=== PATIENT | female | born 1990 | race Caucasian/White ===

== ENCOUNTER 2019-06-30 01:53 | Emergency (ER) | payer BC, OTHER ==
[~2019-06-30] VITALS: Ht 165.1 cm; Wt 86.2 kg
[2019-06-30] MEDS ORDERED: NORCO 5-325 TA1 EAC1 PO (04:02)
[2019-06-30 04:09] VITALS: BP 136/86
== END 2019-06-30 04:10 | disposition home or self-care (01) ==
LOC: ER 01:53
DX: T14.90XA Injury, unspecified, initial encounter (principal); R51 Headache; W19.XXXA Unspecified fall, initial encounter; Y93.89 Activity, other specified; Y92.89 Other specified places as the place of occurrence of the external cause; Y99.8 Other external cause status